=== PATIENT | female | born 1995 | race Asian ===

== ENCOUNTER 2024-03-19 12:19 | Emergency (ER) | payer OTHER ==
[~2024-03-19] VITALS: Ht 165.1 cm; Wt 61.2 kg
[2024-03-19 13:04] LABS: BASOPHILS % (AUTO) 0.3 % (0.0-2.0); EOSINOPHILS # (AUTO) 0.1 K/uL (0.0-0.7); EOSINOPHILS % (AUTO) 2.2 % (0.0-7.0); HEMATOCRIT 45.4 % (31.2-41.9); HEMOGLOBIN 15.1 g/dL (10.9-14.3); LYMPHOCYTES # (AUTO) 1.8 K/uL (0.8-4.8); LYMPHOCYTES % (AUTO) 33.3 % (20.5-51.5); MEAN CORPUSCULAR HGB CONC 33 g/dL (32.3-35.6); MEAN CORPUSCULAR VOLUME 93.4 fL (75.5-95.3); MONOCYTES # (AUTO) 0.3 K/uL (0.1-1.30); MONOCYTES % (AUTO) 5.2 % (0.0-11.0); NEUTROPHILS # (AUTO) 3.3 K/uL (1.8-8.9); PLATELET COUNT (AUTO) 201 K/uL (179-408); RED BLOOD CELL COUNT(AUTO) 4.86 MIL/uL (3.63-4.92); RED CELL DISTRIBUTION WIDTH 12.9 % (12.3-17.7); WHITE BLOOD COUNT (AUTO) 5.5 K/uL (3.8-11.8)
[2024-03-19 13:12] LABS: CALCIUM 9.4 mg/dL (8.5-10.1); CARBON DIOXIDE 30 mmol/L (21-32); CHLORIDE 104 mmol/L (98-107); CREATININE 0.9 mg/dL (0.6-1.3); GLUCOSE 64 mg/dL (74-106); POTASSIUM 3.9 mmol/L (3.5-5.1); SODIUM SERUM 144 mmol/L (136-145); UREA NITROGEN, BLOOD 12 mg/dL (7-18)
[2024-03-19 13:14] LABS: DIFFERENTIAL COMMENT 1
[2024-03-19 13:21] LABS: ALANINE AMINOTRANSFERASE 28 U/L (14-59); ALBUMIN 4.3 g/dL (3.4-5.0); ALKALINE PHOSPHATASE 59 U/L (50-136); ASPARTATE AMINOTRANSFERASE 14 U/L (15-37); BILIRUBIN,DIRECT 0.1 mg/dL (0.0-0.2); BILIRUBIN,TOTAL 0.4 mg/dL (0.2-1.0); TOTAL PROTEIN, SERUM 8.3 g/dL (6.4-8.2)
[2024-03-19] MEDS ORDERED: IOHEXOL 350 100 ML INFUS..BTL ONE (13:53)
[2024-03-19] MEDS ORDERED: IV NORMAL SALINE 250 ML IV ONE (13:53)
[2024-03-19] MEDS ORDERED: SWABABLE VALVE TRANSFER SET EA MC ONE (13:53)
[2024-03-19] MEDS ORDERED: METOCLOPRAMIDE HCL 10 MG/2 ML VIAL ONE (14:48)
[2024-03-19] MEDS ORDERED: KETOROLAC TROMETHAMINE 15 MG INJ ONE (14:48)
[2024-03-19] MEDS: METOCLOPRAMIDE HCL 10 MG/2 ML VIAL IV ONE (14:54)
[2024-03-19] MEDS: KETOROLAC TROMETHAMINE 15 MG INJ IVP ONE (14:55)
[2024-03-19] MEDS ORDERED: METO-295 PO (16:12)
[2024-03-19] MEDS ORDERED: IBUP-1957 PO (16:12)
[2024-03-19 18:15] VITALS: BP 106/75; TEMP 97.3; O2SAT 98
== END 2024-03-19 18:16 | disposition home or self-care (01) ==
LOC: ER 12:20
DX: R51.9 Headache, unspecified (principal); M54.50 Low back pain, unspecified; M54.2 Cervicalgia; R11.2 Nausea with vomiting, unspecified; R20.0 Anesthesia of skin; R20.2 Paresthesia of skin; R10.2 Pelvic and perineal pain; Z88.2 Allergy status to sulfonamides
CPT/HCPCS: 99285; 70496; 96374; 96375; 80076; 80048; 85025; 85730; 84484; 84702; 36415; 70498; 72125; 72131; J1885; J2765; Q9967; A4606; A4663